=== PATIENT | male | born 2000 | race Caucasian/White ===

== ENCOUNTER 2019-01-07 07:35 | Emergency (ER) | payer BC, OTHER ==
[2019-01-07] MEDS ORDERED: Ondansetron 4 MG Tab.DIS PO ONE (08:45)
--- NOTE | 2019-01-07 08:45 | EDM.PDOC ---
ED HPI GENERAL MEDICAL PROBLEM - General Chief Complaint: Back Pain or Injury Stated Complaint: SWELLING IN BACK/PAIN Time Seen by Provider: 01/07/19 08:20 Source of Information: Reports: Patient, Family History Limitations: Reports: No Limitations - History of Present Illness Onset: Gradual (more intense in past five days, three week history of low back pain - chronic condition from hockey injury) left mid back Pain Score (Numeric/FACES): 7 - Related Data Allergies Allergy/AdvReac Type Severity Reaction Status Date / Time No Known Allergies Allergy Verified 01/07/19 07:54 Home Meds: Home Meds NK [No Known Home Meds] 01/07/19 [History] Past Medical History Musculoskeletal History: Reports: Back Pain, Chronic - Past Surgical History Male Surgical History: Reports: Ureteral Stent Social & Family History - Tobacco Use Smoking Status *Q: Never Smoker Second Hand Smoke Exposure: No - Caffeine Use Caffeine Use: Reports: Coffee - Alcohol Use Days Per Week of Alcohol Use: 3 Number of Drinks Per Day: 5 Total Drinks Per Week: 15 - Recreational Drug Use Recreational Drug Use: No ED ROS GENERAL - Review of Systems Review Of Systems: ROS reveals no pertinent complaints other than HPI. Constitutional: Reports: No Symptoms Respiratory: Reports: No Symptoms GI/Abdominal: Reports: Nausea (complains of feeling nausousness in middle of night, housemates were nausous, think may have been foodborne illness as all ate same food at luncheon) Musculoskeletal: Reports: Back Pain (bilateral low back, pain shoots into gluteus, denies numbness to lower legs), Muscle Pain Skin: Reports: No Symptoms Neurological: Reports: No Symptoms Psychiatric: Reports: No Symptoms ED EXAM,LOWER BACK PAIN/INJURY - Physical Exam Exam: See Below Exam Limited By: No Limitations General Appearance: Alert, WD/WN, No Apparent Distress Ears: Hearing Grossly Normal Head: Atraumatic, Normocephalic Respiratory/Chest: Normal Breath Sounds GI/Abdominal: Other Extremities: Other (Minimal pain to bony prominences of spine, but pain to pressure at L 4/5 region in muscles of region. Left leg range of motion to 30 degrees, right to 45 degrees before lower back pain intensifies. Patient can rub left heel to right [place] without pain, but unable to rub left heel to right [place] without extreme pain. ) Neurological: Alert, Normal Mood/Affect Psychiatric: Normal Affect, Normal Mood Skin Exam: Warm, Dry, Intact, Normal Color, No Rash Course - Vital Signs Text/Narrative:: Discussed with patient and mother that findings are likely muscle spasm in nature and that films would not likely show us anything. Patient feels this injury is like a previous hockey injury and may have been exacerbated by recent snowboarding in [place], [place] over spring break from college. Past five days pain has been intensifying, respiratory care assistant brought much relief and dry needling mother did brought relief as well. Suggested abdominal strengthening routine and hamstring stretching should be added to daily routine to increase core strength and lead to overall conditioning. Last Recorded V/S: Last Vital Signs Temp 36.2 C 01/07/19 07:57 Pulse 95 01/07/19 07:57 Resp 16 01/07/19 07:57 BP 140/77 01/07/19 07:57 Pulse Ox 98 01/07/19 07:57 Departure - Departure Time of Disposition: 09:13 Disposition: Admitted As Inpatient 64 Condition: Good Clinical Impression: Low back strain, History of back strain - Discharge Information *PRESCRIPTION DRUG MONITORING PROGRAM REVIEWED*: No *COPY OF PRESCRIPTION DRUG MONITORING REPORT IN PATIENT ELENA: No Referrals: PCP,None [Primary Care Provider] - Care Plan Goals: Baclofen 10mg PO BID #28 Instructed to take Aleve prescription strength dose 2 tabs in morning with food and 2 tabs in evening with food x 7-10 for inflammation. Zofran 4m sublingual #5 PRN for nausea
[2019-01-07] MEDS ORDERED: Acetaminophen/HYDROcodone 325-5 MG Tab PO ONE (08:54)
[2019-01-07] MEDS ORDERED: Cyclobenzaprine 10 MG Tab PO ONE (08:54)
[2019-01-07] MEDS ORDERED: Ketorolac 60 MG/2 ML SDV IM ONE (08:54)
== END 2019-01-07 09:27 | disposition home or self-care (01) ==
LOC: JP.ED 07:35
DX: S39.012A Strain of muscle, fascia and tendon of lower back, initial encounter (principal); X58.XXXA Exposure to other specified factors, initial encounter; Y93.65 Activity, lacrosse and field hockey
CPT/HCPCS: 96372; 99283; A9270; J1885